=== PATIENT | male | born 1955 | race Caucasian/White ===

== ENCOUNTER 2020-04-26 09:13 | Emergency (ER) | payer MEDICARE, MEDICAID ==
[~2020-04-26] VITALS: Ht 182.9 cm; Wt 63.6 kg
[~2020-04-26 09:13] MED LIST: ALLEGRA PO; BACLOFEN10 MG PO; CELEBREX 200MG200 MG PO; CORTIZONE-10 MAXIM1% TP; FLUOCINONIDE TP; MINOCYCLINE PO; NEURONTIN300 MG/CAP PO; OCUVITE; TEMAZEPAM15 MG PO; [UNRECOGNIZED DRUG - OTHER]; [UNRECOGNIZED DRUG - OTHER] TP
[2020-04-26 09:14] VITALS: TEMP 97.6
[2020-04-26 09:25] LABS: BASO % 0.1 % (0.0-2.0); GRAN # 12.2 (1.4-6.5); GRAN % 78.6 % (42.2-75.2); HEMOGLOBIN 15.6 g/dl (13.5-18.0); LYMPH # 2.5 (1.2-3.4); LYMPH % 16.3 % (20.0-51.0); MEAN CELL VOLUME 86 fl (80.0-100.0); MEAN CORPUSCULAR HEMOGLOBIN 28 pg (27.0-31.0); MEAN CORPUSCULAR HGB CONC 33 g/dl (33.0-37.0); MEAN PLATELET VOLUME 10.3 fl (7.4-10.4); MONO # 0.7 (0.1-0.6); MONO % 4.5 % (1.7-9.3); PLATELET COUNT 230 K/mm3 (130-400); RED BLOOD COUNT 5.57 M/mm3 (4.20-5.60); REDCELL DISTRIBUTION WIDTH-CV 14.8 % (11.5-14.5)
[2020-04-26 09:34] LABS: PROTHROMBIN TIME 11.2 SECONDS (9.7-12.8)
[2020-04-26 09:37] LABS: PARTIAL THROMBOPLASTIN TIME 28.7 SECONDS (26.0-37.0)
[2020-04-26 09:50] LABS: TROPONIN-I 2.85 ng/mL (0.000-0.035)
[2020-04-26 10:13] LABS: ALBUMIN 3.4 gm/dL (3.5-5.0); BILIRUBIN,TOTAL 0.6 mg/dL (0.0-1.0); CALCIUM 8.2 mg/dL (8.4-10.2); CREATININE, serum 0.42 (0.66-1.25); TOTAL PROTEIN 6.1 gm/dL (6.4-8.2)
[2020-04-26 10:20] VITALS: BP 138/99; PULSE 100
== END 2020-04-26 10:20 | disposition short-term general hospital (02) ==
LOC: COL.ER
PROVIDERS: Emergency Medicine
DX: I21.3 ST elevation (STEMI) myocardial infarction of unspecified site (principal); Z88.0 Allergy status to penicillin
CPT/HCPCS: J1644; J2270; J3101; J7030

== ENCOUNTER 2021-03-21 14:54 | Emergency (ER) | payer MEDICARE, MEDICAID ==
[~2021-03-21] VITALS: Ht 172.7 cm; Wt 63.6 kg
[2021-03-21 15:15] VITALS: TEMP 97.1
[2021-03-21 17:00] LABS: BASO % 0.4 % (0.0-2.0); EOS # 0.1 K/mm3 (0.0-0.7); EOS % 0.7 % (0.0-4.0); GRAN # 4.6 K/mm3 (1.4-6.5); GRAN % 62.9 % (42.2-75.2); HEMATOCRIT 48.6 % (42.0-52.0); HEMOGLOBIN 15.6 g/dl (13.5-18.0); MEAN CELL VOLUME 93 fl (80.0-100.0); MEAN CORPUSCULAR HEMOGLOBIN 30 pg (27-31); MEAN CORPUSCULAR HGB CONC 32 g/dl (33.0-37.0); MEAN PLATELET VOLUME 10.7 fl (7.4-10.4); MONO # 0.6 K/mm3 (0.1-0.6); MONO % 8.7 % (1.7-9.3); PLATELET COUNT 220 K/mm3 (130-400); RED BLOOD COUNT 5.22 M/mm3 (4.20-5.60); REDCELL DISTRIBUTION WIDTH-CV 13.6 % (11.5-14.5)
[2021-03-21 17:15] LABS: CALCIUM 8.6 mg/dL (8.4-10.2); CREATININE, serum 0.65 mg/dL (0.72-1.25); POTASSIUM 4.2 mmol/L (3.5-4.5)
[2021-03-21 17:22] LABS: TROPONIN-I 0.032 ng/mL (0.00-0.033)
[2021-03-21 19:29] VITALS: BP 131/87; PULSE 82
== END 2021-03-21 19:46 | disposition home or self-care (01) ==
LOC: COL.ER 14:54
PROVIDERS: Physician Assistant
DX: E87.5 Hyperkalemia (principal); G12.21 Amyotrophic lateral sclerosis

== ENCOUNTER 2021-04-26 16:29 | Emergency (ER) | payer MEDICARE, MEDICAID ==
[~2021-04-26] VITALS: Ht 172.7 cm; Wt 61.4 kg
[2021-04-26 16:42] VITALS: TEMP 97.8
[2021-04-26 17:55] LABS: BASO % 0.3 % (0.0-2.0); GRAN # 6.2 K/mm3 (1.4-6.5); GRAN % 79.1 % (42.2-75.2); HEMATOCRIT 46.1 % (42.0-52.0); HEMOGLOBIN 15.4 g/dl (13.5-18.0); LYMPH # 1.2 K/mm3 (1.2-3.4); LYMPH % 15.3 % (20.0-51.0); MEAN CELL VOLUME 90 fl (80.0-100.0); MEAN CORPUSCULAR HEMOGLOBIN 30 pg (27-31); MEAN CORPUSCULAR HGB CONC 33 g/dl (33.0-37.0); MEAN PLATELET VOLUME 10.8 fl (7.4-10.4); MONO # 0.4 K/mm3 (0.1-0.6); PLATELET COUNT 238 K/mm3 (130-400); RED BLOOD COUNT 5.13 M/mm3 (4.20-5.60); REDCELL DISTRIBUTION WIDTH-CV 13.4 % (11.5-14.5)
[2021-04-26 18:10] LABS: ALBUMIN 3.9 gm/dL (3.4-4.8); BILIRUBIN,TOTAL 0.6 mg/dL (0.2-1.2); CALCIUM 8.7 mg/dL (8.4-10.2); CREATININE, serum 0.63 mg/dL (0.72-1.25); POTASSIUM 4.2 mmol/L (3.5-4.5); TOTAL PROTEIN 6.8 gm/dL (6.2-8.1)
[2021-04-26 18:16] LABS: TROPONIN-I 0.047 ng/mL (0.00-0.033)
[2021-04-26 18:45] LABS: COLLECTION METHOD CLEAN CATCH
[2021-04-26 18:55] LABS: MUCOUS Present (NOT PRESENT); PH 5 (5-8); SQUAMOUS EPITHELIAL None Seen /hpf (0-10); URINE APPEARANCE Clear (CLEAR/HAZY); URINE BACTERIA None Seen /hpf (NONE SEEN); URINE BILIRUBIN Negative (NEGATIVE); URINE BLOOD 1+ (NEGATIVE); URINE COLOR Yellow (YELLOW); URINE GLUCOSE Negative (NEGATIVE); URINE KETONE 1+ (NEGATIVE); URINE LEUKOCYTE ESTERASE Negative (NEGATIVE); URINE NITRATE Negative (NEGATIVE); URINE PROTEIN(semi-quant) Negative (NEGATIVE); URINE UROBILINOGEN Negative (NEGATIVE)
[2021-04-26] MEDS ORDERED: ZOFRAN ODT4 MG PO (19:20)
[2021-04-26 19:31] VITALS: BP 140/92; PULSE 98
== END 2021-04-26 19:31 | disposition home or self-care (01) ==
LOC: COL.ER 16:29
PROVIDERS: Physician Assistant
DX: R10.13 Epigastric pain (principal); R11.2 Nausea with vomiting, unspecified; R79.89 Other specified abnormal findings of blood chemistry
CPT/HCPCS: J2405; J7030

== ENCOUNTER 2021-07-20 13:50 | Emergency (ER) | payer MEDICARE, MEDICAID ==
[~2021-07-20] VITALS: Ht 172.7 cm; Wt 60.0 kg
[~2021-07-20 13:50] MED LIST changes: +ZOFRAN ODT4 MG PO
[2021-07-20 14:11] VITALS: TEMP 98.6
[2021-07-20 14:42] LABS: COLLECTION METHOD CLEAN CATCH
[2021-07-20 14:54] LABS: MUCOUS Present (NOT PRESENT); PH 5 (5-8); SQUAMOUS EPITHELIAL None Seen /hpf (0-10); URINE APPEARANCE Hazy (CLEAR/HAZY); URINE BACTERIA Rare /hpf (NONE SEEN); URINE BILIRUBIN Negative (NEGATIVE); URINE BLOOD 1+ (NEGATIVE); URINE COLOR Amber (YELLOW); URINE GLUCOSE Negative (NEGATIVE); URINE KETONE 2+ (NEGATIVE); URINE LEUKOCYTE ESTERASE 2+ (NEGATIVE); URINE NITRATE Negative (NEGATIVE); URINE PROTEIN(semi-quant) 1+ (NEGATIVE); URINE UROBILINOGEN Negative (NEGATIVE); URINE WBC >50 /hpf (0-2)
[2021-07-20 15:47] LABS: BASO % 0.2 % (0.0-2.0); GRAN # 11.4 K/mm3 (1.4-6.5); GRAN % 84.1 % (42.2-75.2); HEMATOCRIT 46.2 % (42.0-52.0); HEMOGLOBIN 14.7 g/dl (13.5-18.0); LYMPH # 1.3 K/mm3 (1.2-3.4); LYMPH % 9.8 % (20.0-51.0); MEAN CELL VOLUME 93 fl (80.0-100.0); MEAN CORPUSCULAR HEMOGLOBIN 30 pg (27-31); MEAN CORPUSCULAR HGB CONC 32 g/dl (33.0-37.0); MEAN PLATELET VOLUME 10.9 fl (7.4-10.4); MONO # 0.8 K/mm3 (0.1-0.6); MONO % 5.5 % (1.7-9.3); PLATELET COUNT 281 K/mm3 (130-400); RED BLOOD COUNT 4.99 M/mm3 (4.20-5.60); REDCELL DISTRIBUTION WIDTH-CV 13.4 % (11.5-14.5)
[2021-07-20 16:01] LABS: ALBUMIN 3.3 gm/dL (3.4-4.8); CALCIUM 8.6 mg/dL (8.4-10.2); CREATININE, serum 0.56 mg/dL (0.72-1.25); POTASSIUM 4.4 mmol/L (3.5-4.5); TOTAL PROTEIN 7.3 gm/dL (6.2-8.1)
[2021-07-20 16:12] LABS: BILIRUBIN,TOTAL 0.4 mg/dL (0.2-1.2)
[2021-07-20] MEDS ORDERED: CIPRO 500MG TA500 MG PO (17:19)
[2021-07-20 18:43] VITALS: BP 164/103; PULSE 118
[2021-07-25] MEDS ORDERED: ZOFRAN 4MG T4 MG/TAB PO (22:06)
[2021-07-25] MEDS ORDERED: ENTRESTO 24 MG1 EACH PO (22:07)
[2021-07-25] MEDS ORDERED: RESTORIL 1515 MG/CAP PO (22:08)
[2021-07-25] MEDS ORDERED: ULTRAM 50MG TAB50 MG PO (22:09)
[2021-07-25] MEDS ORDERED: PLAVIX 75MG TAB75 MG PO (22:18)
[2021-07-25] MEDS ORDERED: PROTONIX20 MG PO (22:18)
[2021-07-25] MEDS ORDERED: RILUTEK 50MG TA50 MG PO (22:19)
[2021-07-25] MEDS ORDERED: TOPROL XL 25MG25 MG PO (22:20)
[2021-07-25] MEDS ORDERED: SYNTHROID0.05 MG/TA PO (22:20)
[2021-07-25] MEDS ORDERED: VESICARE10 MG PO (22:20)
[2021-07-25] MEDS ORDERED: LIORESAL 1010 MG/TAB PO (22:21)
== END 2021-07-20 19:25 | disposition home or self-care (01) ==
LOC: COL.ER 13:50
PROVIDERS: Personal Emergency Response Attendant
DX: N39.0 Urinary tract infection, site not specified (principal); Z87.442 Personal history of urinary calculi
CPT/HCPCS: J0696; J0780; J1790; J7030